=== PATIENT | female | born 1995 ===

== ENCOUNTER 2020-02-28 09:59 | Emergency (ER) | payer SELFPAY ==
[2020-02-28 10:23] VITALS: BP 102/73
--- NOTE | 2020-02-28 10:54 | Emergency Department Report ---
HPI - General Chief Complaint: Vaginal Bleeding Time Seen by Provider: 02/28/20 10:39 - HPI HPI: Room 2 The patient is a 24-year-old female present with a chief complaint of vaginal bleeding. The patient states she has a history of irregular menses her last cycle occurred at the beginning of this month. The patient states that 04: 00 this morning she developed vaginal bleeding again. The patient states she is passing a large amount of blood and clots on 3 separate occasions eventually leading to her feeling dizzy and falling but not losing consciousness. Patient states she has been through 10 pads today since 04:00. ED Past Medical Hx - Past Medical History Previous Medical History?: Yes - Surgical History Past Surgical History?: No - Family History Family history: no significant - Social History Smoking Status: Never Smoker Substance Use Type: None (Denies illicit drug use) - Medications Home Medications: Home Medications Medication Instructions Recorded Confirmed Last Taken Type Ciprofloxacin HCl [Ciprofloxacin 500 mg PO Q12HR #20 tab 02/28/20 Unknown Rx TAB] medroxyPROGESTERone ACETATE 10 mg PO QDAY #10 tablet 02/28/20 Unknown Rx [Provera] traMADoL [Ultram] 50 mg PO Q6HR PRN #10 tablet 02/28/20 Unknown Rx ED Review of Systems ROS: Stated complaint: BLEEDING Other details as noted in HPI Constitutional: no symptoms reported Respiratory: no symptoms reported Endocrine: no symptoms reported Gastrointestinal: abdominal pain Genitourinary: abnormal menses Physical Exam - Physical Exam Vital Signs: Vital Signs 02/28/20 10:17 Temperature 97.9 F Pulse Rate 77 Respiratory 18 Rate Blood Pressure 102/73 Blood Pressure 102/73 [Right] O2 Sat by Pulse 100 Oximetry Physical Exam: GENERAL: The patient is well-developed well-nourished female sitting on stretcher not appearing to be in acute distress. [] HEENT: Normocephalic. Atraumatic. Extraocular motions are intact. Patient has moist mucous membranes. NECK: Supple. Trachea midline CHEST/LUNGS: Clear to auscultation. There is no respiratory distress noted. HEART/CARDIOVASCULAR: Regular. There is no tachycardia. There is no gallop rub or murmur. ABDOMEN: Abdomen is soft, with mild lower abdominal discomfort. No rebound or guarding. Patient has normal bowel sounds. There is no abdominal distention. SKIN: There is no rash. There is no edema. There is no diaphoresis. NEURO: The patient is awake, alert, and oriented. The patient is cooperative. The patient has normal speech MUSCULOSKELETAL: There is no evidence of acute injury. ED Course Vital Signs 02/28/20 10:17 Temperature 97.9 F Pulse Rate 77 Respiratory 18 Rate Blood Pressure 102/73 Blood Pressure 102/73 [Right] O2 Sat by Pulse 100 Oximetry ED Medical Decision Making - Lab Data Result diagrams: 02/28/20 10:40 02/28/20 10:46 Laboratory Tests 02/28/20 02/28/20 02/28/20 10:40 10:40 10:46 WBC 10.1 RBC 4.44 Hgb 12.8 Hct 38.2 MCV 86 MCH 29 MCHC 34 RDW 13.5 Plt Count 300 Lymph % (Auto) 21.2 [place] % (Auto) 4.9 Eos % (Auto) 0.8 Baso % (Auto) 0.2 Lymph # 2.1 [place] # 0.5 Eos # 0.1 Baso # 0.0 Seg Neutrophils % 72.9 H Seg Neutrophils # 7.3 PT INR APTT Sodium Potassium Chloride Carbon Dioxide Anion Gap BUN Creatinine Estimated GFR BUN/Creatinine Ratio Glucose Calcium HCG, Quant < 2 Urine Color Urine Turbidity Urine pH Ur Specific [place] Urine Protein Urine Glucose (UA) Urine Ketones Urine Blood Urine Nitrite Urine Bilirubin Urine Urobilinogen Ur Leukocyte Esterase Urine WBC (Auto) Urine RBC (Auto) Urine Mucus Blood Type O POSITIVE 02/28/20 02/28/20 02/28/20 10:46 10:46 13:56 WBC RBC Hgb Hct MCV MCH MCHC RDW Plt Count Lymph % (Auto) [place] % (Auto) Eos % (Auto) Baso % (Auto) Lymph # [place] # Eos # Baso # Seg Neutrophils % Seg Neutrophils # PT 13.5 INR 1.02 APTT 21.8 L Sodium 141 Potassium 3.9 Chloride 104.5 Carbon Dioxide 22 Anion Gap 18 BUN 17 Creatinine 0.8 Estimated GFR > 60 BUN/Creatinine Ratio 21 Glucose 190 H Calcium 8.7 HCG, Quant Urine Color Yellow Urine Turbidity Turbid Urine pH 5.0 Ur Specific [place] 1.025 Urine Protein 100 mg/dl Urine Glucose (UA) Neg Urine Ketones 20 Urine Blood Lg Urine Nitrite Neg Urine Bilirubin Neg Urine Urobilinogen < 2.0 Ur Leukocyte Esterase Tr Urine WBC (Auto) > 182.0 H Urine RBC (Auto) > 182.0 Urine Mucus 3+ Blood Type - Radiology Data Radiology results: report reviewed (Pelvic ultrasound), image reviewed (Pelvic ultrasound) [facility] [address] [place] [address] Ultrasound Report Signed Patient: SEB MCCULLOUGH MR#: [id number] : 1995 Acct:[id number] Age/Sex: 24 / F ADM Date: 02/28/20 Loc: ED Attending Dr: Ordering Physician: BARBER FISHER MD Date of Service: 02/28/20 Pro cedure(s): US transvaginal Accession Number(s): [id number] cc: BARBER FISHER MD ULTRASOUND PELVIS, COMPLETE INDICATION: Heavy vaginal bleeding COMPARISON: No relevant prior imaging study available. FINDINGS: Transabdominal and transvaginal imaging was performed. Uterus: Uterus measures 7.2 x 4.3 x 7.4 cm. No lesions are seen.. Endometrial echo complex measures 4-5 mm, within normal limits. Right ovary: No significant abnormality. Left ovary: No significant abnormality. Flow is seen to both ovaries. Additional findings: Trace free fluid in the cul-de-sac may be physiologic.. IMPRESSION: Unremarkable pelvic ultrasound. Signer Name: Shukri Zapien MD Signed: 02/28/2020 1:24 PM Workstation Name: [id number] Transcribed By: Dictated By: Shukri Zapien MD Electronically Authenticated By: Shukri Zapien MD Signed Date/Time: 02/28/20 1324 DD/ 1323 TD/TT: - Differential Diagnosis Menorrhagia, missed , metromenorrhagia, Critical care attestation.: If time is entered above; I have spent that time in minutes in the direct care of this critically ill patient, excluding procedure time. ED Disposition Clinical Impression: Menorrhagia, UTI (urinary tract infection) Disposition: DC-01 TO HOME OR SELFCARE Is pt being admited?: No Does the pt Need Aspirin: No Condition: Stable Instructions: Menorrhagia (ED) Additional Instructions: Return to the emergency department should you develop worsening symptoms, inability to tolerate food or liquids, high fever or any other concerns Prescriptions: Ciprofloxacin HCl [Ciprofloxacin TAB] 500 mg PO Q12HR #20 tab medroxyPROGESTERone ACETATE [Provera] 10 mg PO QDAY #10 tablet traMADoL [Ultram] 50 mg PO Q6HR PRN #10 tablet PRN Reason: Pain Referrals: SHERRON ROMO MD [Primary Care Provider] - 3-5 Days [facility] [Provider Group] - [place] Time of Disposition: 15:40
[2020-02-28 11:05] LABS: Basophils % (Auto) 0.2 % (0.0-1.8); Eosinophils # (Auto) 0.1 K/mm3 (0.0-0.4); Eosinophils % (Auto) 0.8 % (0.0-4.3); Hematocrit 38.2 % (30.3-42.9); Hemoglobin 12.8 gm/dl (10.1-14.3); Lymphocytes # (Auto) 2.1 K/mm3 (1.2-5.4); Lymphocytes % (Auto) 21.2 % (13.4-35.0); Mean Corpuscular HGB Conc 34 % (30-34); Mean Corpuscular Volume 86 fl (79-97); Monocytes # (Auto) 0.5 K/mm3 (0.0-0.8); Monocytes % (Auto) 4.9 % (0.0-7.3); Platelet Count 300 K/mm3 (140-440); Red Blood Count 4.44 M/mm3 (3.65-5.03); Red Cell Distribution Width 13.5 % (13.2-15.2)
[2020-02-28 11:17] LABS: INR 1.02 (0.87-1.13); Partial Thromboplastin Time 21.8 Sec. (24.2-36.6)
[2020-02-28 11:25] LABS: BUN/Creatinine Ratio 21; Blood Urea Nitrogen 17 mg/dL (7-17); Calcium 8.7 mg/dL (8.4-10.2); Hemolysis Index 7
--- NOTE | 2020-02-28 13:29 | Ultrasound Report ---
ULTRASOUND PELVIS, COMPLETE INDICATION: Heavy vaginal bleeding COMPARISON: No relevant prior imaging study available. FINDINGS: Transabdominal and transvaginal imaging was performed. Uterus: Uterus measures 7.2 x 4.3 x 7.4 cm. No lesions are seen.. Endometrial echo complex measures 4 -5 mm, within normal limits. Right ovary: No significant abnormality. Left ovary: No significant abnormality. Flow is seen to both ovaries. Additional findings: Trace free fluid in the cul-de-sac may be physiologic.. IMPRESSION: Unremarkable pelvic ultrasound. Signer Name: Shukri Zapien MD Signed: 02/28/2020 1:24 PM Workstation Name: [id number]
[2020-02-28 14:13] LABS: Bilirubin,Urine NEG (Negative); Blood,Urine LG (Negative); Color,Urine Yellow (Yellow); Mucus,Urine 3+ /HPF; Urobilinogen,Urine < 2.0 mg/dL (<2.0)
[2020-02-28 14:14] LABS: RBC,Urine > 182.0 /HPF (0.0-6.0); WBC,Urine > 182.0 /HPF (0.0-6.0)
[2020-02-28] MEDS ORDERED: levoFLOXacin 750 MG TAB PO ONE (14:15)
== END 2020-02-28 16:04 | disposition home or self-care (01) ==
LOC: ED 09:59
DX: N92.0 Excessive and frequent menstruation with regular cycle (principal); N39.0 Urinary tract infection, site not specified; Z79.899 Other long term (current) drug therapy
CPT/HCPCS: 36415; 76830; 76856; 80048; 81001; 84702; 85025; 85610; 85730; 86900; 86901